=== PATIENT | male | born 1950 | race African-American/Black ===

== ENCOUNTER 2019-06-03 12:27 | Emergency (ER) | payer OTHER ==
--- OUTSIDE RECORDS SUMMARY | 2019-06-03 12:29 | XMS REPORT ---
:1950 Author Organization eClinicalWorks Care Team Providers Name Role Phone Glenn Phillips Provider Role Unavailable Allergies, Adverse Reactions, Alerts Substance Reaction Event Type N.K.D.A. Info Not Available Non Drug Allergy Problems Problem Type Condition Code Onset Dates Condition Status Assessment Benign essential hypertension I10 Active Problem Benign essential hypertension I10 Active Problem Leukocytopenia, unspecified D72.819 Active Problem Thrombocytopenia D69.6 Active Problem Varicose veins of right lower I83.811 Active extremity with pain Problem Seasonal and perennial allergic J30.9 Active rhinitis Problem Unilateral inguinal hernia without K40.90 Active obstruction or gangrene, recurrence not specified Problem First degree AV block I44.0 Active Problem Hyperlipidemia, mixed E78.2 Active Assessment Elevated LFTs R94.5 Active Assessment Seasonal and perennial allergic J30.9 Active rhinitis Assessment Thrombocytopenia D69.6 Active Assessment Leukocytopenia, unspecified D72.819 Active Assessment First degree AV block I44.0 Active Assessment Adult BMI 29.0-29.9 kg/sq m Z68.29 Active Assessment Hyperlipidemia, mixed E78.2 Active Medications Medication Code Code Instructions Start End Status Dosage System Date Date Hydrochlorothiazide [facility] 70250096398 12.5 MG Orally Dec 04, Active 1 tablet twice a day [address] [facility] 38405285129 50-12.5 MG Active 1 tablet Orally Twice a day Montelukast Sodium [facility] [id number] 10 MG Orally Active 1 tablet Once a day in the evening Losartan Potassium [facility] [id number] 50 MG Orally Dec 04, Active 1 tablet twice a day 2018 Results No Known Results Summary Purpose eClinicalWorks Submission
[2019-06-03 13:35] LABS: Absolute Lymphocytes (CBC) 1.6 K/uL (0.7-4.9); Basophils % 0.6 % (0-1.3); Hematocrit 37.5 % (39.6-49.0); Lymphocytes % 25.5 % (15.3-44.8); MPV 10.4 fL (7.6-11.3); RBC Red Blood Cell Count 4.31 M/uL (4.33-5.43)
[2019-06-03 13:50] LABS: ALT/SGPT 26 U/L (12-78); AST/SGOT 25 U/L (15-37); Albumin 3.3 g/dL (3.4-5.0); Alkaline Phosphatase 57 U/L (45-117); BUN Blood Urea Nitrogen 17 mg/dL (7-18); Bicarbonate 27 mmol/L (21-32); Bilirubin Direct 0.2 mg/dL (0-0.2); Bilirubin Total 0.9 mg/dL (0.2-1.0); Glucose Level 129 mg/dL (74-106); Lipase 120 U/L (73-393); Potassium 3.5 mmol/L (3.5-5.1); Protein, Total 6.9 g/dL (6.4-8.2); Sodium Level 141 mmol/L (136-145)
--- NOTE | 2019-06-03 14:35 | RAD REPORT ---
EXAM DESCRIPTION: CT - Abdomen Pelvis W Contrast - 06/03/2019 2:20 pm CLINICAL HISTORY: Rectal Bleeding;Abd pain COMPARISON: No comparisons TECHNIQUE: Biphasic, helical CT imaging of the abdomen and pelvis was performed following 100 ml non -ionic IV contrast. No oral contrast. All CT scans are performed using dose optimization technique as appropriate and may include automated exposure control or mA/KV adjustment according to patient size. FINDINGS: No suspicious findings in the lung bases. Liver size is normal. No solid mass of the liver identified. There are numerous variably sized homoge neous cystic masses throughout the liver parenchyma largest at 4.9 cm in the dome. No mural nodule, s eptation or enhancement component. Spleen and pancreas show no suspicious findings. Gallbladder and b iliary tree are also without suspicious finding. Symmetric renal function is seen with no hydronephrosis or suspicious renal mass. No pyelonephritis o r acute parenchymal process. Bilateral renal cysts are present. No suspicious characteristics. No uri nary bladder abnormality. No adrenal abnormalities. Prostate gland and seminal vesicles show no suspi cious findings. No stomach or small bowel suspicious finding. Appendix is normal. No dilated colon. Diverticulosis is present. No diverticulitis findings. Distal most rectum at the anus has limited visualization due to motion and inherent CT limitation. Hemorrhoid history was provided. This study is not accurate for e valuation of a possible rectal mass. This can be correlated with digital examination as needed. No free air, free fluid or inflammatory stranding. No hernia, mass or bulky lymphadenopathy. Disc and bony degenerative changes are present most notable at L4-5. No acute bone finding. No acute vascular process. IMPRESSION: Perianal and distal most rectum mass assessment is limited on CT examination due to pool on and inherent CT limitation. Remainder of the colon shows no acute or suspicious finding. Bilateral renal cysts and numerous hepatic cyst. No suspicious characteristics.
[2019-06-03 16:01] LABS: Absolute Lymphocytes (CBC) 0.9 K/uL (0.7-4.9); Basophils % 0.3 % (0-1.3); Hematocrit 39.2 % (39.6-49.0); Lymphocytes % 13.5 % (15.3-44.8); MPV 10.2 fL (7.6-11.3); RBC Red Blood Cell Count 4.45 M/uL (4.33-5.43)
--- NOTE | 2019-06-03 16:23 | ER ---
Nurse's Notes [facility] Name: Anthony Hu Age: 69 yrs Sex: Male : 1950 Arrival Date: 06/03/2019 Time: 12:30 Bed 18 Private MD: Diagnosis: Rectal bleeding;Hemorrhoids and perianal venous thrombosis Presentation: 06/03 12:58 Presenting complaint: Patient states: when I eat i poop black and bright red blood. I ch have hemmorids. now I am getting dizzy some times. Transition of care: patient was not received from another setting of care. Onset of symptoms was June 01, 2019. Risk Assessment: Do you want to hurt yourself or someone else? Patient reports no desire to harm self or others. Initial Sepsis Screen: Does the patient meet any 2 criteria? No. Patient's initial sepsis screen is negative. Does the patient have a suspected source of infection? No. Patient's initial sepsis screen is negative. Care prior to arrival: None. 12:58 Method Of Arrival: EMS: [facility] 12:58 Acuity: RICK 3 ch Triage Assessment: 13:00 General: Appears in no apparent distress. uncomfortable, Behavior is calm, cooperative, ch appropriate for age. Pain: Complains of pain in abdomen. Historical: - Allergies: 13:00 No Known Allergies; ch - Home Meds: 13:00 amlodipine 5 mg tab 1 tab once daily [Active]; losartan-hydrochlorothiazide 100-25 mg ch Oral tab 1 tab once daily [Active]; - PMHx: 13:00 Hernia; Hypertension; ch - PSHx: 13:00 None; ch - Immunization history:: Adult Immunizations up to date. - Coronavirus screen:: The patient has NOT traveled to [place], [place], or [place] in the past 14 days. The patient has NOT had contact with known/suspected case of Coronavirus?. - Social history:: Smoking status: Patient denies any tobacco usage or history of. Patient/guardian denies using alcohol, street drugs. - Ebola Screening: : Patient negative for fever greater than or equal to 101.5 degrees Fahrenheit, and additional compatible Ebola Virus Disease symptoms Patient denies exposure to infectious person Patient denies travel to an Ebola-affected area in the 21 days before illness onset No symptoms or risks identified at this time. Screenin:13 Abuse screen: Denies threats or abuse. Denies injuries from another. Nutritional bp screening: No deficits noted. Tuberculosis screening: No symptoms or risk factors identified. Fall Risk No fall in past 12 months (0 pts). No secondary diagnosis (0 pts). IV access (20 points). Ambulatory Aid- None/Bed Rest/Nurse Assist (0 pts). Gait- Normal/Bed Rest/Wheelchair (0 pts) Mental Status- Oriented to own ability (0 pts). Total Patel Fall Scale indicates No Risk (0-24 pts). Assessment: 13:00 General: SEE TRIAGE NOTE. bp 14:00 Reassessment: PT IN CT. INITIAL LAB RESULTS UNREMARKABLE. bp 15:09 Reassessment: PT RETURNED FROM CT. NO ACUTE S/S AT THIS TIME, VS STABLE ON MONITOR. bp 15:37 Reassessment: REPEAT CBC DRAWN AND SENT. VS STABLE ON MONITOR, NO ACUTE S/S AT THIS bp TIME. Vital Signs: 13:00 BP 88 / 52; Pulse 80; Resp 16; Temp 98.0; Pulse Ox 96% on R/A; Weight 86.18 kg; Height 5 ft. 7 in. (170.18 cm); Pain 0/10; 13:14 BP 104 / 66; Pulse 92; Resp 18; Pulse Ox 97% ; bp 14:15 BP 122 / 76; Pulse 78; Resp 14; Pulse Ox 99% ; bp 15:13 BP 141 / 80; Pulse 80; Resp 12; Pulse Ox 97% ; bp 16:40 BP 143 / 79; Pulse 61; Resp 20; Temp 98; Pulse Ox 97% ; bp 13:00 Body Mass Index 29.76 (86.18 kg, 170.18 cm) ED Course: 12:30 Patient arrived in ED. as 12:59 Triage completed. 12:59 Michael Azar MD is Attending Physician. kdr 13:00 Arm band placed on left wrist. Patient placed in an exam room. ch 13:12 Boris Castro, SARAHY is Primary Nurse. bp 13:13 Patient has correct armband on for positive identification. Bed in low position. Call bp light in reach. Side rails up X2. Adult w/ patient. monitoring and evaluation advisor on. Pulse ox on. NIBP on. 13:13 Inserted saline lock: 18 gauge in right antecubital area, using aseptic technique. bp Blood collected. 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 bp 13:39 Type And Screen Sent. bp 13:40 Basic Metabolic Panel Sent. bp 13:40 Occult Blood--Ancillary Sent. bp 13:40 CBC with Diff Sent. bp 13:40 Creatinine for Radiology Sent. bp 13:40 Lipase Sent. bp 13:40 Hepatic Function Sent. bp 15:54 Repeat lab(s) drawn. by me, sent to lab. by venipuncture 21G to left ac. 3 16:40 IV discontinued, intact, bleeding controlled, No redness/swelling at site. Pressure bp dressing applied. Administered Medications: No medications were administered Outcome: 16:22 Discharge ordered by . kdr 16:41 Discharged to home ambulatory, with family. bp 16:41 Condition: stable 16:41 Discharge instructions given to patient, Instructed on discharge instructions, follow up and referral plans. Demonstrated understanding of instructions, follow-up care. 16:49 Patient left the ED. bp Signatures: Daisy Bailey, RN RN Michael Azar MD MD kdr Martinez, Amelia as Herrera, Deanna [facility] Boris Castro, RN RN bp
--- NOTE | 2019-06-03 16:23 | EDPHYS ---
Physician Documentation [facility] Name: Anthony Hu Age: 69 yrs Sex: Male : 1950 Arrival Date: 06/03/2019 Time: 12:30 Bed 18 Private MD: ED Physician Michael Azra HPI: 06/03 17:14 This 69 yrs old Black Male presents to ER via EMS with complaints of Rectal Bleeding. kdr 17:14 The patient presents to the emergency department with bleeding from the rectum/anus, kdr that is mild. Onset: The symptoms/episode began/occurred suddenly, 3 day(s) ago. Context: the patient has no known special context relating to the rectal area complaint(s). Modifying factors: The symptoms are alleviated by nothing, The symptoms are aggravated by nothing. Associate signs and symptoms: Pertinent positives: abdominal pain in the abdomen diffusely, diarrhea, lower GI bleeding, in toilet bowl, Pertinent negatives: constipation, dysuria, fever, vomiting. The patient has not experienced similar symptoms in the past. The patient has not recently seen a physician. Historical: - Allergies: 13:00 No Known Allergies; ch - Home Meds: 13:00 amlodipine 5 mg tab 1 tab once daily [Active]; losartan-hydrochlorothiazide 100-25 mg ch Oral tab 1 tab once daily [Active]; - PMHx: 13:00 Hernia; Hypertension; ch - PSHx: 13:00 None; ch - Immunization history:: Adult Immunizations up to date. - Coronavirus screen:: The patient has NOT traveled to [place], [place], or [place] in the past 14 days. The patient has NOT had contact with known/suspected case of Coronavirus?. - Social history:: Smoking status: Patient denies any tobacco usage or history of. Patient/guardian denies using alcohol, street drugs. - Ebola Screening: : Patient negative for fever greater than or equal to 101.5 degrees Fahrenheit, and additional compatible Ebola Virus Disease symptoms Patient denies exposure to infectious person Patient denies travel to an Ebola-affected area in the 21 days before illness onset No symptoms or risks identified at this time. ROS: 17:14 Constitutional: Negative for fever, chills, and weight loss, Eyes: Negative for injury, kdr pain, redness, and discharge, ENT: Negative for injury, pain, and discharge, Neck: Negative for injury, pain, and swelling, Cardiovascular: Negative for chest pain, palpitations, and edema, Respiratory: Negative for shortness of breath, cough, wheezing, and pleuritic chest pain, Back: Negative for injury and pain, : Negative for injury, bleeding, discharge, and swelling, MS/Extremity: Negative for injury and deformity, Skin: Negative for injury, rash, and discoloration, Neuro: Negative for headache, weakness, numbness, tingling, and seizure activity. Psych: Negative for depression, anxiety, suicide ideation, homicidal ideation, and hallucinations, Allergy/Immunology: Negative for hives, rash, and allergies, Endocrine: Negative for neck swelling, polydipsia, polyuria, polyphagia, and marked weight changes. 17:14 Abdomen/GI: Positive for abdominal pain, diarrhea, rectal bleeding, Negative for constipation, abdominal distension, black/tarry stool, rectal pain. Exam: 17:14 Constitutional: This is a well developed, well nourished patient who is awake, alert, kdr and in no acute distress. Head/Face: Normocephalic, atraumatic. Eyes: Pupils equal round and reactive to light, extra-ocular motions intact. Lids and lashes normal. Conjunctiva and sclera are non-icteric and not injected. Cornea within normal limits. Periorbital areas with no swelling, redness, or edema. Neck: Trachea midline, no thyromegaly or masses palpated, and no cervical lymphadenopathy. Supple, full range of motion without nuchal rigidity, or vertebral point tenderness. No Meningismus. Chest/axilla: Normal chest wall appearance and motion. Nontender with no deformity. No lesions are appreciated. Cardiovascular: Regular rate and rhythm with a normal S1 and S2. No gallops, murmurs, or rubs. Normal PMI, no JVD. No pulse deficits. Respiratory: Lungs have equal breath sounds bilaterally, clear to auscultation and percussion. No rales, rhonchi or wheezes noted. No increased work of breathing, no retractions or nasal flaring. Back: No spinal tenderness. No costovertebral tenderness. Full range of motion. Skin: Warm, dry with normal turgor. Normal color with no rashes, no lesions, and no evidence of cellulitis. MS/ Extremity: Pulses equal, no cyanosis. Neurovascular intact. Full, normal range of motion. Neuro: Awake and alert, GCS 15, oriented to person, place, time, and situation. Cranial nerves II-XII grossly intact. Motor strength 5/5 in all extremities. Sensory grossly intact. Cerebellar exam normal. Normal gait. Psych: Awake, alert, with orientation to person, place and time. Behavior, mood, and affect are within normal limits. 17:14 Abdomen/GI: Inspection: abdomen appears normal, Bowel sounds: active, all quadrants, Palpation: soft, mild abdominal tenderness, in all quadrants, Rectal exam: Prostate: normal, rectal tone normal, Stool: guaiac positive, soft. Vital Signs: 13:00 BP 88 / 52; Pulse 80; Resp 16; Temp 98.0; Pulse Ox 96% on R/A; Weight 86.18 kg; Height ch 5 ft. 7 in. (170.18 cm); Pain 0/10; 13:14 BP 104 / 66; Pulse 92; Resp 18; Pulse Ox 97% ; bp 14:15 BP 122 / 76; Pulse 78; Resp 14; Pulse Ox 99% ; bp 15:13 BP 141 / 80; Pulse 80; Resp 12; Pulse Ox 97% ; bp 16:40 BP 143 / 79; Pulse 61; Resp 20; Temp 98; Pulse Ox 97% ; bp 13:00 Body Mass Index 29.76 (86.18 kg, 170.18 cm) MDM: 16:22 Patient medically screened. kdr 17:14 Data reviewed: vital signs, nurses notes, lab test result(s), EKG, radiologic studies. kdr Counseling: I had a detailed discussion with the patient and/or guardian regarding: the historical points, exam findings, and any diagnostic results supporting the discharge/admit diagnosis, lab results, radiology results, the need for outpatient follow up. 06/03 13:16 Order name: Basic Metabolic Panel bp 06/03 13:16 Order name: CBC with Diff bp 06/03 13:16 Order name: Creatinine for Radiology bp 06/03 13:16 Order name: Hepatic Function bp 06/03 13:16 Order name: Lipase bp 06/03 13:16 Order name: Type And Screen bp 06/03 13:20 Order name: Occult Blood--Ancillary bd 06/03 13:43 Order name: CBC with Automated Diff; Complete Time: 14:33 EDMS 06/03 13:48 Order name: Creatinine (Radiology Only); Complete Time: 14:33 EDMS 06/03 13:51 Order name: Basic Metabolic Panel; Complete Time: 14:33 EDMS 06/03 13:51 Order name: Liver (Hepatic) Function; Complete Time: 14:33 EDMS 06/03 13:51 Order name: Lipase; Complete Time: 14:33 EDMS 06/03 15:01 Order name: Type and Screen; Complete Time: 15:20 EDMS 06/03 15:07 Order name: ABO/RH no charge; Complete Time: 15:20 EDMS 06/03 13:16 Order name: IV Saline Lock; Complete Time: 13:17 bp 06/03 13:16 Order name: Labs collected and sent; Complete Time: 13:17 bp 06/03 13:38 Order name: CT Abd/Pelvis - IV Contrast Only kdr 06/03 14:39 Order name: CT; Complete Time: 15:20 EDMS 06/03 15:23 Order name: CBC with Diff kdr 06/03 16:02 Order name: CBC with Automated Diff; Complete Time: 16:18 EDMS Administered Medications: No medications were administered Disposition: 06/03/19 16:22 Discharged to Home. Impression: Rectal bleeding, Hemorrhoids and perianal venous thrombosis. - Condition is Stable. - Discharge Instructions: Hemorrhoids, [id number], Rectal Bleeding, [id number]. - Medication Reconciliation Form, Thank You Letter, Work release form form. - Follow up: Private Physician; When: 2 - 3 days; Reason: If symptoms return, Further diagnostic work-up, Recheck today's complaints, Continuance of care, Re-evaluation by your physician. - Problem is new. - Symptoms have improved. Signatures: Dispatcher [employer] EDMS Daisy Bailey RN RN Michael Azar MD MD kdr Boris Castro RN RN bp Corrections: (The following items were deleted from the chart) 16:49 16:22 06/03/2019 16:22 Discharged to Home. Impression: Rectal bleeding; Hemorrhoids and bp perianal venous thrombosis. Condition is Stable. Forms are Medication Reconciliation Form, Thank You Letter, Antibiotic Education, Prescription Opioid Use. Follow up: Private Physician; When: 2 - 3 days; Reason: If symptoms return, Further diagnostic work-up, Recheck today's complaints, Continuance of care, Re-evaluation by your physician. Problem is new. Symptoms have improved. kdr
[2019-06-03 17:06] VITALS: O2SAT 97
[2019-06-03 17:13] VITALS: BP 143/79; TEMP 98
== END 2019-06-03 16:49 | disposition home or self-care (01) ==
LOC: ER 12:27
DX: K64.5 Perianal venous thrombosis (principal); I10 Essential (primary) hypertension
CPT/HCPCS: 85025 ×2; 80048; 36415; 86900; 86850; 86901; 80076; 82272; 83690; 74177; 99284; Q9967